=== PATIENT | female | born 1995 | race Two or more races ===

== ENCOUNTER 2017-01-05 09:14 | Emergency (ER) | payer BC, OTHER ==
--- NOTE | ~2017-01-05 | CT4 ---
[facility] A Service of [facility] RADIOLOGY TEXT RESULTS PATIENT: CRISTI HERNANDEZ LOCATION: [facility] : [birth year] UNIT #: [id number] AGE: [address]: Dax Rain SEX: F ORDER DR: [id number] [facility] [address] [place], [place] [address] [id number] E MR#: [id number] Acc #: [id number] NAME: CRISTI HERNANDEZ. : 1995 SEX: F STUDY DATE/TIME: 01/05/2017 11:33 UNIT: [facility] ROOM: STUDY DESCRIPTION: CT Abd and Pelv Wo Cont Attending Physician: Dax Rain Ordering Physician: Dax Rain Primary Care Physician: Primary Care Physician No MEDICAL IMAGING REPORT This report is preliminary unless electronic signature is present EXAM CT of the abdomen and pelvis without contrast media. HISTORY History supplied is right flank pain since falling down stairs yesterday. TECHNIQUE Axial imaging of the abdomen and pelvis was performed without contrast media. There are no previous studies. The CT exam was performed with one or more of the following radiation dose reduction techniques: automatic exposure control, adjustment of mA and/or kV according to patient size, and iterative reconstruction. FINDINGS Lung bases are clear. Liver, gallbladder, spleen, adrenal glands, and pancreas are normal. Both the right and left kidneys are normal. There is no hydronephrosis or hydroureter. No dilated or thickened loops of bowel are identified. The appendix is normal. There are bilateral follicular cysts. There is an IUD. There is a tampon within the vagina. There is soft tissue edema in the subcutaneous fat overlying the right gluteus musculature and right iliac wing. A small amount of air is seen within the soft tissue as well. Underlying bony elements are intact. No fractures are present. CONCLUSION Soft tissue edema and a small amount of air in the subcutaneous fat overlying the right gluteus musculature posteriorly and right iliac wing posteriorly. The remainder of the scan is within normal limits. Dictated by... Charbel Peter M.D. [facility] A Service of [facility] RADIOLOGY TEXT RESULTS PATIENT: CRISTI HERNANDEZ LOCATION: [facility] : [birth year] UNIT #: [id number] AGE: [address]: Dax Rain SEX: F ORDER DR: THIS IS AN ELECTRONICALLY VERIFIED REPORT Charbel Peter M.D. at 01/05/2017 4:50 PM GUY/enoc TD: 01/05/2017 13:05 JOB #: [id number] MEDICAL IMAGING REPORT Page 1 of 1 COPY
[2017-01-05 10:34] LABS: URINE SOURCE CLEAN CATCH
[2017-01-05 10:42] LABS: URINE APPEARANCE CLEAR; URINE BILIRUBIN NEG (NEG); URINE BLOOD NEG (NEG); URINE COLOR YELLOW; URINE GLUCOSE NEG (NEG); URINE KETONE NEG (NEG); URINE LEUKOCYTE ESTERASE NEG (NEG); URINE NITRATE NEG (NEG); URINE PH 5.5 (5-8); URINE PROTEIN NEG (NEG); URINE SPECIFIC GRAVITY 1.023 (1.003-1.035)
[2017-01-05 10:49] LABS: CULTURE INDICATED? NO
== END 2017-01-05 12:10 | disposition home or self-care (01) ==
LOC: CFTX 09:14 → CED 09:14 → CFTX 10:17
PROVIDERS: Nurse Practitioner
DX: S30.0XXA Contusion of lower back and pelvis, initial encounter (principal); F17.210 Nicotine dependence, cigarettes, uncomplicated; W10.9XXA Fall (on) (from) unspecified stairs and steps, initial encounter; Y92.009 Unspecified place in unspecified non-institutional (private) residence as the place of occurrence of the external cause
CPT/HCPCS: 74176; 81003; 84703; 96372; 99284; J1885